=== PATIENT | female | born 1970 | race Caucasian/White ===

== ENCOUNTER 2017-03-03 05:52 | Emergency (ER) | payer SELFPAY ==
[~2017-03-03] VITALS: Ht 172.7 cm; Wt 146.6 kg
[~2017-03-03 05:52] MED LIST: CIPROFLOXACN500 MG PO; FLEXERIL PO; HYDROCODONE/IBU1 TAB OR; LIPITOR20 MG OR; LORTAB 5/3255 MG PO; NO; NO HOME MEDS; OMEPRAZOLE40 MG PO; RISPERIDONE0.5 MG PO; TRAMADOL HCL50 MG PO; TRAZODONE100 MG PO
[2017-03-03] MEDS ORDERED: ROPINIROLE0.5 MG PO (06:06)
[2017-03-03 07:21] LABS: HEMATOCRIT 30.6 % (37.0-47.0); HEMOGLOBIN 9.1 g/dl (12.0-16.0); IMMATURE GRANULOCYTES 0.6 % (0.0-1.0); MEAN CORPUSCULAR HGB 24.4 pG CALC (26.0-32.0); MEAN CORPUSCULAR HGB CONC 29.7 g/L CALC (32.0-36.0); NEUT# 5.26 thou/uL (2.00-7.15); RED BLOOD COUNT 3.73 mill/uL (4.20-5.60); RED CELL DISTRI WIDTH 16.9 % (11.5-15.5)
[2017-03-03 07:23] LABS: URINE BILIRUBIN - DIPSTICK NEGATIVE (NEGATIVE); URINE BLOOD DIPSTICK NEGATIVE (NEGATIVE); URINE CLARITY CLEAR; URINE COLOR YELLOW; URINE GLUCOSE - DIPSTICK NEGATIVE (NEGATIVE); URINE KETONE NEGATIVE (NEGATIVE); URINE LEUK ESTERASE NEGATIVE (NEGATIVE); URINE NITRITE - DIPSTICK NEGATIVE (Negative); URINE PH 5.5 (4.5-8.0); URINE PROTEIN - DIPSTICK NEGATIVE (NEG-TRACE); URINE SPECIFIC GRAVITY <=1.005; URINE UROBILINOGEN - DIPSTICK 0.2 E.U./dL (0.2)
[2017-03-03 07:40] LABS: ALBUMIN 4.2 g/dL (3.2-5.0); ALKALINE PHOSPHATASE 80 u/l (38-126); ANION GAP 16 (6-22 (CALC)); BILIRUBIN, TOTAL 0.5 mg/dL (0.0-1.4); BUN 7 mg/dL (7-17); BUN/CREATININE RATIO 9 (12-20 (CALC)); CALCIUM 9.3 mg/dL (8.4-10.2); CARBON DIOXIDE 24 mmol/l (22-30); CHLORIDE 107 mmol/l (95-108); CREATININE 0.8 mg/dL (0.5-1.0); GFR > 60 ML/MIN (>=60 (CALC)); GFR FOR AFR.AMER. > 60 ML/MIN (>=60 (CALC)); GLUCOSE 104 mg/dL (65-105); SGOT/AST 19 u/l (14-36); SGPT/ALT 26 u/l (9-52); SODIUM 143 mmol/l (137-146); TOTAL PROTEIN 7.9 g/dL (6.3-8.2)
[2017-03-03 08:15] VITALS: BP 119/68
== END 2017-03-03 08:35 | disposition home or self-care (01) | DRG 57 ==
LOC: ED 05:52
PROVIDERS: Emergency Medicine
DX: G25.81 Restless legs syndrome (principal); M79.604 Pain in right leg

== ENCOUNTER 2020-08-07 08:19 | Emergency (ER) | payer OTHER ==
[~2020-08-07] VITALS: Ht 172.7 cm; Wt 136.0 kg
[~2020-08-07 08:19] MED LIST changes: +ROPINIROLE0.5 MG PO
[2020-08-07] MEDS ORDERED: LORTAB 1010 MG PO (10:49)
[2020-08-07] MEDS ORDERED: FLEXERIL PO (10:49)
[2020-08-07 11:02] VITALS: BP 139/65
== END 2020-08-07 11:25 | disposition home or self-care (01) | DRG 563 ==
LOC: ED 08:19
DX: S83.91XA Sprain of unspecified site of right knee, initial encounter (principal); M54.5 Low back pain; F17.210 Nicotine dependence, cigarettes, uncomplicated; W18.30XA Fall on same level, unspecified, initial encounter; Y92.009 Unspecified place in unspecified non-institutional (private) residence as the place of occurrence of the external cause
CPT/HCPCS: L1830

== ENCOUNTER 2022-03-03 13:41 | Observation (INO) | payer OTHER ==
[~2022-03-03] VITALS: Ht 172.7 cm; Wt 122.0 kg
[~2022-03-03 13:41] MED LIST changes: +LORTAB 1010 MG PO
[2022-03-03 14:28] LABS: HEMATOCRIT 30.8 % (37.0-47.0); HEMOGLOBIN 8.5 g/dl (12.0-16.0); IMMATURE GRANULOCYTES 0.2 % (0.0-5.0); MEAN CELL VOLUME 81.9 fL CALC (80.0-100.0); MEAN CORPUSCULAR HGB 22.6 pG CALC (26.0-32.0); MEAN CORPUSCULAR HGB CONC 27.6 g/dL CAL (32.0-36.0); NEUT# 4.05 thou/uL (2.00-7.15); RED BLOOD COUNT 3.76 mill/uL (4.20-5.60); RED CELL DISTRI WIDTH 18.3 % (11.5-15.5)
[2022-03-03 14:44] LABS: ALKALINE PHOSPHATASE 66 u/l (38-126); BILIRUBIN, TOTAL 0.5 mg/dL (0.0-1.4); BUN 7 mg/dL (7-17); BUN/CREATININE RATIO 11 (12-20 (CALC)); CHLORIDE 104 mmol/l (95-108); CREATININE 0.6 mg/dL (0.5-1.0); GFR > 60 ML/MIN (>=60 (CALC)); GFR FOR AFR.AMER. > 60 ML/MIN (>=60 (CALC)); POTASSIUM 3.9 mmol/l (3.5-5.1); SGOT/AST 23 u/l (14-36); SODIUM 138 mmol/l (137-146); TOTAL PROTEIN 7.6 g/dL (6.3-8.2)
[2022-03-03 14:51] LABS: ANION GAP 9 (6-22 (CALC)); CARBON DIOXIDE 29 mmol/l (22-30)
[2022-03-03 17:56] VITALS: BP 154/99
[2022-03-04] VITALS (8 sets, daily range): BP systolic 120–155; BP diastolic 51–79
[2022-03-04 05:41] LABS: HEMATOCRIT 27.2 % (37.0-47.0); HEMOGLOBIN 7.5 g/dl (12.0-16.0); MEAN CELL VOLUME 81.7 fL CALC (80.0-100.0); MEAN CORPUSCULAR HGB 22.5 pG CALC (26.0-32.0); MEAN CORPUSCULAR HGB CONC 27.6 g/dL CAL (32.0-36.0); RED BLOOD COUNT 3.33 mill/uL (4.20-5.60); RED CELL DISTRI WIDTH 18.6 % (11.5-15.5)
[2022-03-04 05:55] LABS: ANION GAP 13 (6-22 (CALC)); BUN 6 mg/dL (7-17); BUN/CREATININE RATIO 12 (12-20 (CALC)); CARBON DIOXIDE 25 mmol/l (22-30); CHLORIDE 104 mmol/l (95-108); CREATININE 0.5 mg/dL (0.5-1.0); GFR > 60 ML/MIN (>=60 (CALC)); GFR FOR AFR.AMER. > 60 ML/MIN (>=60 (CALC)); MAGNESIUM 1.7 mg/dL (1.6-2.3); POTASSIUM 3.9 mmol/l (3.5-5.1); SODIUM 138 mmol/l (137-146)
[2022-03-04] MEDS ORDERED: ROPINIROLE5 MG PO (09:02)
[2022-03-04] MEDS ORDERED: CYANOCOBAL1000 MCG/M SC (09:03)
[2022-03-05 04:53] VITALS: BP 143/78
[2022-03-05 05:40] LABS: HEMOGLOBIN 7.2 g/dl (12.0-16.0); IMMATURE GRANULOCYTES 0.5 % (0.0-5.0); MEAN CELL VOLUME 81.8 fL CALC (80.0-100.0); MEAN CORPUSCULAR HGB 22.6 pG CALC (26.0-32.0); MEAN CORPUSCULAR HGB CONC 27.7 g/dL CAL (32.0-36.0); NEUT# 4.27 thou/uL (2.00-7.15); RED BLOOD COUNT 3.18 mill/uL (4.20-5.60); RED CELL DISTRI WIDTH 18.9 % (11.5-15.5)
[2022-03-05 06:00] LABS: ALBUMIN 3.4 g/dL (3.2-5.0); ALKALINE PHOSPHATASE 56 u/l (38-126); ANION GAP 9 (6-22 (CALC)); BILIRUBIN, TOTAL 0.2 mg/dL (0.0-1.4); BUN 12 mg/dL (7-17); BUN/CREATININE RATIO 18 (12-20 (CALC)); CARBON DIOXIDE 26 mmol/l (22-30); CHLORIDE 105 mmol/l (95-108); CREATININE 0.7 mg/dL (0.5-1.0); GFR > 60 ML/MIN (>=60 (CALC)); GFR FOR AFR.AMER. > 60 ML/MIN (>=60 (CALC)); MAGNESIUM 1.9 mg/dL (1.6-2.3); POTASSIUM 3.4 mmol/l (3.5-5.1); SGOT/AST 22 u/l (14-36); SODIUM 138 mmol/l (137-146); TOTAL PROTEIN 6.1 g/dL (6.3-8.2)
[2022-03-05 08:29] VITALS: BP 126/62
[2022-03-05 10:05] VITALS: BP 139/78
[2022-03-05 15:34] VITALS: BP 143/74
[2022-03-05 18:54] VITALS: BP 122/66
[2022-03-05 23:30] VITALS: BP 152/64
[2022-03-06 04:11] VITALS: BP 134/74
[2022-03-06 05:17] LABS: HEMATOCRIT 27.2 % (37.0-47.0); HEMOGLOBIN 7.5 g/dl (12.0-16.0); IMMATURE GRANULOCYTES 1.3 % (0.0-5.0); MEAN CELL VOLUME 82.2 fL CALC (80.0-100.0); MEAN CORPUSCULAR HGB 22.7 pG CALC (26.0-32.0); MEAN CORPUSCULAR HGB CONC 27.6 g/dL CAL (32.0-36.0); NEUT# 4.75 thou/uL (2.00-7.15); RED BLOOD COUNT 3.31 mill/uL (4.20-5.60)
[2022-03-06 05:43] LABS: ALBUMIN 3.8 g/dL (3.2-5.0); ALKALINE PHOSPHATASE 61 u/l (38-126); BUN 11 mg/dL (7-17); BUN/CREATININE RATIO 18 (12-20 (CALC)); CARBON DIOXIDE 25 mmol/l (22-30); CHLORIDE 105 mmol/l (95-108); CREATININE 0.6 mg/dL (0.5-1.0); GFR > 60 ML/MIN (>=60 (CALC)); GFR FOR AFR.AMER. > 60 ML/MIN (>=60 (CALC)); MAGNESIUM 1.9 mg/dL (1.6-2.3); SODIUM 137 mmol/l (137-146); TOTAL PROTEIN 6.7 g/dL (6.3-8.2)
[2022-03-06 05:49] LABS: ANION GAP 11 (6-22 (CALC)); BILIRUBIN, TOTAL 0.3 mg/dL (0.0-1.4); POTASSIUM 4.1 mmol/l (3.5-5.1); SGOT/AST 41 u/l (14-36)
[2022-03-06 08:08] VITALS: BP 158/86
[2022-03-06 10:25] VITALS: BP 154/76
[2022-03-06 14:06] VITALS: BP 136/77
[2022-03-07 00:53] VITALS: BP 151/83
[2022-03-07 04:00] VITALS: BP 158/80
[2022-03-07 06:09] LABS: HEMATOCRIT 27.8 % (37.0-47.0); HEMOGLOBIN 7.6 g/dl (12.0-16.0); MEAN CELL VOLUME 82.2 fL CALC (80.0-100.0); MEAN CORPUSCULAR HGB 22.5 pG CALC (26.0-32.0); MEAN CORPUSCULAR HGB CONC 27.3 g/dL CAL (32.0-36.0); RED BLOOD COUNT 3.38 mill/uL (4.20-5.60); RED CELL DISTRI WIDTH 18.9 % (11.5-15.5)
[2022-03-07 06:19] LABS: BUN 13 mg/dL (7-17); BUN/CREATININE RATIO 17 (12-20 (CALC)); CARBON DIOXIDE 25 mmol/l (22-30); CHLORIDE 104 mmol/l (95-108); CREATININE 0.7 mg/dL (0.5-1.0); GFR > 60 ML/MIN (>=60 (CALC)); GFR FOR AFR.AMER. > 60 ML/MIN (>=60 (CALC)); MAGNESIUM 2.1 mg/dL (1.6-2.3); SODIUM 135 mmol/l (137-146)
[2022-03-07 06:21] LABS: ANION GAP 10 (6-22 (CALC)); POTASSIUM 4.1 mmol/l (3.5-5.1)
[2022-03-07 07:19] VITALS: BP 140/71
[2022-03-07 10:41] VITALS: BP 138/79
[2022-03-07] MEDS ORDERED: IPRATROPIU0.5 MG/3 M NEB (11:37)
[2022-03-07] MEDS ORDERED: FERROUS SULFAT325 MG PO (11:38)
[2022-03-07] MEDS ORDERED: MEDDOSEPAK PO (11:40)
[2022-03-07] MEDS ORDERED: AZITHROMYCIN500 MG PO (11:40)
[2022-03-07] MEDS ORDERED: PROAIR HFA108 MCG/AC IN (11:45)
[2022-03-07] MEDS ORDERED: BIOTUSSIN PO (11:46)
[2022-03-07] MEDS ORDERED: LORTAB 5/3255 MG PO (17:08)
== END 2022-03-07 13:49 | disposition home or self-care (01) | DRG 192 ==
LOC: ED 13:41 → ED-I 15:15 → ED 15:44 → MS2 15:45
PROVIDERS: Family Medicine; Hospitalist; Nurse Practitioner; ADMIT Internal Medicine; ATTEND Internal Medicine
DX: J44.1 Chronic obstructive pulmonary disease with (acute) exacerbation (principal); E87.6 Hypokalemia; D50.9 Iron deficiency anemia, unspecified; E53.8 Deficiency of other specified B group vitamins; G25.81 Restless legs syndrome; M54.50 Low back pain, unspecified; G89.29 Other chronic pain; F17.210 Nicotine dependence, cigarettes, uncomplicated; Z98.84 Bariatric surgery status; Z23 Encounter for immunization; Z20.822 Contact with and (suspected) exposure to COVID-19
CPT/HCPCS: G0378; J1650

== ENCOUNTER 2023-11-30 10:31 | Emergency (ER) | payer SELFPAY ==
[2023-11-30] VITALS (10 sets, daily range): BP systolic 122–148; BP diastolic 53–104
[~2023-11-30] VITALS: Ht 172.7 cm; Wt 117.0 kg
[~2023-11-30 10:31] MED LIST changes: +AZITHROMYCIN500 MG PO; +BIOTUSSIN PO; +CYANOCOBAL1000 MCG/M SC; +FERROUS SULFAT325 MG PO; +IPRATROPIU0.5 MG/3 M NEB; +MEDDOSEPAK PO; +PROAIR HFA108 MCG/AC IN; +ROPINIROLE5 MG PO
[2023-11-30 11:17] LABS: BASO% 0.1 % (0-3); EOS% 0.6 % (0-8); HEMATOCRIT 32.3 % (37.0-47.0); HEMOGLOBIN 9.3 g/dl (12.0-16.0); IMMATURE GRANULOCYTES 0.2 % (0.0-5.0); LYMPH% 10.5 % (15-41); MEAN CELL VOLUME 83.9 fL CALC (80.0-100.0); MEAN CORPUSCULAR HGB 24.2 pG CALC (26.0-32.0); MEAN CORPUSCULAR HGB CONC 28.8 g/dL CAL (32.0-36.0); MONO% 6.2 % (2-13); NEUT# 7.68 thou/uL (2.00-7.15); NEUT% 82.4 % (42-76); RED BLOOD COUNT 3.85 mill/uL (4.20-5.60)
[2023-11-30 11:24] LABS: ALBUMIN 3.9 g/dL (3.2-5.0); ANION GAP 11 (6-22 (CALC)); BUN 6 mg/dL (7-17); BUN/CREATININE RATIO 11 (12-20 (CALC)); CARBON DIOXIDE 26 mmol/l (22-30); CHLORIDE 103 mmol/l (95-108); CREATININE 0.6 mg/dL (0.5-1.0); GFR FOR AFR.AMER. > 60 ML/MIN (>=60 (CALC)); GFR OTHER RACES > 60 ML/MIN (>=60 (CALC)); POTASSIUM 4.2 mmol/l (3.5-5.1); SGOT/AST 29 u/l (14-36); SODIUM 136 mmol/l (137-146)
[2023-11-30 11:25] LABS: ALKALINE PHOSPHATASE 115 u/l (38-126); BILIRUBIN, TOTAL 0.5 mg/dL (0.02-1.3)
[2023-11-30] MEDS ORDERED: PREDNISONE50 MG PO (13:44)
[2023-11-30] MEDS ORDERED: ZPAK PO (13:44)
[2023-11-30] MEDS ORDERED: IPRATROPIU0.5 MG/3 M IN (13:44)
[2023-11-30] MEDS ORDERED: VENTOLIN HFA108 MCG PO (13:44)
== END 2023-11-30 14:15 | disposition home or self-care (01) | DRG 313 ==
LOC: ED 10:31
PROVIDERS: Family Medicine
DX: R07.9 Chest pain, unspecified (principal); J06.9 Acute upper respiratory infection, unspecified; J44.9 Chronic obstructive pulmonary disease, unspecified; F17.210 Nicotine dependence, cigarettes, uncomplicated; Z20.822 Contact with and (suspected) exposure to COVID-19
CPT/HCPCS: Q9967